=== PATIENT | male | born 1985 | race Caucasian/White ===

== ENCOUNTER 2023-01-20 14:28 | Emergency (ER) | payer OTHER ==
[~2023-01-20] VITALS: Ht 172.7 cm; Wt 96.2 kg
[2023-01-20 14:42] VITALS: BP_SYST 127; PULSE 105; RESP 19; TEMP 97.9; O2SAT 98
[2023-01-20 15:20] LABS: BASOPHILS % (AUTO) 0.6 % (0.0-2.0); EOSINOPHILS # (AUTO) 0.4 K/uL (0.0-0.4); EOSINOPHILS % (AUTO) 6.4 % (0.0-4.0); HEMATOCRIT 41.9 % (36-54); HEMOGLOBIN 14.1 g/dL (14.0-18.0); LYMPHOCYTES # (AUTO) 0.9 K/uL (1.0-5.5); LYMPHOCYTES % (AUTO) 14.9 % (20.5-51.5); MEAN CORPUSCULAR HEMOGLOBIN 33 pg (27-31); MEAN CORPUSCULAR HGB CONC 34 % (32-36); MEAN CORPUSCULAR VOLUME 97 fL (79.0-98.0); MONOCYTES # (AUTO) 0.5 K/uL (0.0-1.0); MONOCYTES % (AUTO) 8.1 % (1.7-9.3); NEUTROPHILS # (AUTO) 4.1 K/uL (1.8-7.7); PLATELET COUNT (AUTO) 102 K/uL (130-430); RED BLOOD CELL COUNT(AUTO) 4.33 MIL/uL (4.2-6.2); RED CELL DISTRIBUTION WIDTH 13.7 % (9.0-15.0); WHITE BLOOD COUNT (AUTO) 5.9 K/uL (4.8-10.8)
[2023-01-20 15:35] LABS: CALCIUM 8.2 mg/dL (8.4-11.0); CREATININE 0.91 mg/dL (0.55-1.30); POTASSIUM 3.7 mmol/L (3.5-5.1)
[2023-01-20 16:08] LABS: ALBUMIN 3.3 g/dL (3.4-4.8); TOTAL PROTEIN, SERUM 8.1 g/dL (6.4-8.3)
[2023-01-20] MEDS ORDERED: OXYIR5 PO ×2 (16:42→16:59)
[2023-01-20] MEDS ORDERED: IBUP-1969 PO (16:42)
[2023-01-20] MEDS ORDERED: IBUP-1971 PO (16:59)
[2023-01-20 17:29] VITALS: BP_SYST 122; PULSE 88; RESP 19; TEMP 97.9; O2SAT 98
== END 2023-01-20 16:58 | disposition home or self-care (01) ==
LOC: SED 14:28
DX: K52.9 Noninfective gastroenteritis and colitis, unspecified (principal); K62.5 Hemorrhage of anus and rectum; M54.50 Low back pain, unspecified; Z79.899 Other long term (current) drug therapy
CPT/HCPCS: 36415; 76376; 80053; 82150; 83605; 83690; 85025; 99284